=== PATIENT | male | born 1995 | race Hispanic/Latino ===

== ENCOUNTER 2019-03-23 20:56 | Emergency (ER) | payer BC ==
[2019-03-23 21:55] VITALS: BP 123/70
--- NOTE | 2019-03-23 21:55 | Emergency Department Report ---
Chief Complaint: Medical Clearance Stated Complaint: MED REFILL Time Seen by Provider: 03/23/19 21:53 - HPI History of Present Illness: NEEDS LITHIUM REFILL 450 MG IN AM 225 AT HS RX BY IN [place] ON FOR BIPOLAR. MSE COMPLETED MSE screening note: Focused history and physical exam performed. Due to findings the following was ordered: ED Disposition for MSE Condition: Stable
--- NOTE | 2019-03-23 22:15 | Emergency Department Report ---
ED Recheck HPI - General Chief Complaint: Medical Clearance Stated Complaint: MED REFILL Time Seen by Provider: 03/23/19 21:53 Source: patient Mode of arrival: Ambulatory Limitations: No Limitations - History of Present Illness MD Complaint: medication refill request - Related Data Previous Rx's Medication Instructions Recorded Last Taken Type [place] Carbonate [[place] 450 mg PO BID #45 tablet.er 03/23/19 Unknown Rx Carbonate ER] Allergies Allergy/AdvReac Type Severity Reaction Status Date / Time No Known Allergies Allergy Verified 03/23/19 21:00 ED Review of Systems ROS: Stated complaint: MED REFILL Other details as noted in HPI Comment: All other systems reviewed and negative ED Past Medical Hx - Past Medical History Previous Medical History?: Yes Hx Psychiatric Treatment: Yes (bipolar, depression) - Surgical History Past Surgical History?: No - Social History Smoking Status: Never Smoker Substance Use Type: None - Medications Home Medications: Home Medications Medication Instructions Recorded Confirmed Last Taken Type [place] Carbonate [[place] 450 mg PO BID #45 tablet.er 03/23/19 Unknown Rx Carbonate ER] ED Physical Exam - General Limitations: No Limitations General appearance: alert, in no apparent distress - Head Head exam: Present: atraumatic, normocephalic - Eye Eye exam: Present: normal appearance, PERRL - ENT ENT exam: Present: mucous membranes moist - Neck Neck exam: Present: normal inspection - Respiratory Respiratory exam: Present: normal lung sounds bilaterally - Cardiovascular Cardiovascular Exam: Present: regular rate - Rectal Rectal exam: Present: deferred ED Course Vital Signs 03/23/19 21:53 Temperature 97.6 F Pulse Rate 76 Respiratory 18 Rate Blood Pressure 123/70 O2 Sat by Pulse [address] [facility] - Core Measures Measure Exclusions: not indicated - Differential Diagnosis Prescription Refill(s) - Medical Decision Making simple med refill no problems from out of town here with family Vital Signs 03/23/19 21:53 Temperature 97.6 F Pulse Rate 76 Respiratory 18 Rate Blood Pressure 123/70 O2 Sat by Pulse 97 Oximetry Critical care attestation.: If time is entered above; I have spent that time in minutes in the direct care of this critically ill patient, excluding procedure time. ED Disposition Clinical Impression: Medication refill Disposition: DC-01 TO HOME OR SELFCARE Is pt being admited?: No Does the pt Need Aspirin: No Condition: Stable Prescriptions: [place] Carbonate [[place] Carbonate ER] 450 mg PO BID #45 tablet.er Referrals: [facility] [Outside] - 3-5 Days Time of Disposition: 22:13
== END 2019-03-23 22:48 | disposition home or self-care (01) ==
LOC: ED 20:56
DX: F31.9 Bipolar disorder, unspecified (principal); F32.9 Major depressive disorder, single episode, unspecified; Z76.0 Encounter for issue of repeat prescription
CPT/HCPCS: 99282

== ENCOUNTER 2019-06-20 22:43 | Emergency (ER) | payer BC ==
[2019-06-20 23:00] VITALS: BP 143/75
--- NOTE | 2019-06-21 00:18 | Emergency Department Report ---
ED Recheck HPI - General Chief Complaint: Medical Clearance Stated Complaint: OUT OF BIPOLAR MEDS Time Seen by Provider: 06/20/19 23:42 Source: patient Mode of arrival: Ambulatory Limitations: No Limitations - History of Present Illness Initial Comments: Patient is a 23-year-old male presents the emergency room for a medication refill. He states that he takes lithium 450 mg in the morning and 225 mg at night. He states the last time he took his medication was yesterday morning. He states he was going to a doctor in [place] but moved to [place] and does not have a doctor here. Denies any symptoms at all. He does not report any chest pain, shortness of breath, nausea, vomiting. He takes lithium for bipolar manic expressive. Denies any other past medical history or allergies medications. Pt denies any SI, HI, hallucinations. - Related Data Previous Rx's Medication Instructions Recorded Last Taken Type [place] Carbonate [[place] 450 mg PO BID #45 tablet.er 06/21/19 Unknown Rx Carbonate ER] Allergies Allergy/AdvReac Type Severity Reaction Status Date / Time No Known Allergies Allergy Verified 03/23/19 21:00 ED Review of Systems ROS: Stated complaint: OUT OF BIPOLAR MEDS Other details as noted in HPI Comment: All other systems reviewed and negative ED Past Medical Hx - Past Medical History Previous Medical History?: Yes Hx Psychiatric Treatment: Yes (bipolar, depression) - Surgical History Past Surgical History?: No - Social History Smoking Status: Never Smoker Substance Use Type: Alcohol - Medications Home Medications: Home Medications Medication Instructions Recorded Confirmed Last Taken Type [place] Carbonate [[place] 450 mg PO BID #45 tablet.er 06/21/19 Unknown Rx Carbonate ER] ED Physical Exam - General Limitations: No Limitations General appearance: alert, in no apparent distress - Head Head exam: Present: atraumatic, normocephalic - Eye Eye exam: Present: normal appearance - ENT ENT exam: Present: mucous membranes moist - Respiratory Respiratory exam: Present: normal lung sounds bilaterally. Absent: respiratory distress, wheezes, rales, rhonchi, stridor, chest wall tenderness, accessory muscle use, decreased breath sounds, prolonged expiratory - Cardiovascular Cardiovascular Exam: Present: regular rate, normal rhythm, normal heart sounds. Absent: systolic murmur, diastolic murmur, rubs, gallop - Neurological Exam Neurological exam: Present: alert, oriented X3 - Psychiatric Psychiatric exam: Present: normal affect, normal mood - Skin Skin exam: Present: warm, dry, intact ED Course Vital Signs 06/20/19 22:57 Temperature 98.4 F Pulse Rate 89 Respiratory 18 Rate Blood Pressure 143/75 O2 Sat by Pulse 97 Oximetry ED Recheck MDM - Medical Decision Making Patient is a 23-year-old male presents the emergency room for a medication refill. He states that he takes lithium 450 mg in the morning and 225 mg at night. He states the last time he took his medication was yesterday morning. He states he was going to a doctor in [place] but moved to [place] and does not have a doctor here. Denies any symptoms at all. He does not report any chest pain, shortness of breath, nausea, vomiting. He takes lithium for bipolar manic expressive. Denies any other past medical history or allergies medications. Pt denies any SI, HI, hallucinations. VSS. pt given a 1 month supply of his medication. advised to please take medication as prescribed. Please follow-up with a primary care doctor or the [facility] Department for future refills of your medication. Return to the emergency room for any new or worsening symptoms. Critical care attestation.: If time is entered above; I have spent that time in minutes in the direct care of this critically ill patient, excluding procedure time. ED Disposition Clinical Impression: Medication refill Disposition: DC-01 TO HOME OR SELFCARE Is pt being admited?: No Does the pt Need Aspirin: No Condition: Stable Instructions: Bipolar Disorder (ED) Additional Instructions: Please take medication as prescribed. Please follow-up with a primary care doctor or the [facility] Department for future refills of your medication. Return to the emergency room for any new or worsening symptoms. Prescriptions: [place] Carbonate [[place] Carbonate ER] 450 mg PO BID #45 tablet.er Referrals: [facility] [Outside] - 2-3 Days [facility] [Provider Group] - 2-3 Days [facility] [Outside] - 2-3 Days [facility] [Outside] - 2-3 Days Time of Disposition: 00:16 Print Language: GREEK
== END 2019-06-21 01:12 | disposition home or self-care (01) ==
LOC: ED 22:43
DX: F32.9 Major depressive disorder, single episode, unspecified (principal); F31.9 Bipolar disorder, unspecified; Z79.899 Other long term (current) drug therapy; Z76.0 Encounter for issue of repeat prescription
CPT/HCPCS: 99282